=== PATIENT | female | born 1950 | race African-American/Black ===

== ENCOUNTER 2018-03-02 23:54 | Emergency (ER) | payer MEDICARE, OTHER ==
[~2018-03-02] VITALS: Ht 160 cm; Wt 108.0 kg
[2018-03-03 00:28] VITALS: BP 137/67
== END 2018-03-03 03:06 | disposition home or self-care (01) ==
LOC: ER 03-03 00:01
DX: S52.614A Nondisplaced fracture of right ulna styloid process, initial encounter for closed fracture (principal); I10 Essential (primary) hypertension; Z88.6 Allergy status to analgesic agent; X58.XXXA Exposure to other specified factors, initial encounter; Y93.C1 Activity, computer keyboarding; Y92.89 Other specified places as the place of occurrence of the external cause; Y99.8 Other external cause status
CPT/HCPCS: 29125; 73090; 73110; 73130

== ENCOUNTER 2018-07-13 04:44 | Emergency (ER) | payer MEDICARE ==
[~2018-07-13] VITALS: Ht 160 cm; Wt 111.1 kg
[2018-07-13 04:58] VITALS: BP 138/79
[2018-07-13] MEDS ORDERED: cefTRIAXone SOD 1,000 MG VL IM ONE (06:30)
[2018-07-13] MEDS ORDERED: ACETAMINOPHEN 325 MG TAB PO ONE (06:30)
== END 2018-07-13 06:53 | disposition home or self-care (01) ==
LOC: ER 04:44
DX: J20.9 Acute bronchitis, unspecified (principal); J02.9 Acute pharyngitis, unspecified
CPT/HCPCS: 71045; 96372; 99283; J0696